=== PATIENT | female | born 1990 ===

== ENCOUNTER 2022-05-15 15:36 | Outpatient (CLI) | payer OTHER | END 2022-05-15 17:27 | disposition home or self-care (01) | LOC: PRENATAL 15:36 | PROVIDERS: ATTEND Obstetrics & Gynecology Maternal & Fetal Medicine | DX: O26.849 Uterine size-date discrepancy, unspecified trimester (principal); O35.9XX0 Maternal care for (suspected) fetal abnormality and damage, unspecified, not applicable or unspecified; Z3A.32 32 weeks gestation of pregnancy ==

== ENCOUNTER 2022-06-28 05:51 | Inpatient (IN) | payer OTHER ==
[~2022-06-28] VITALS: Ht 157.5 cm; Wt 78.9 kg
[2022-06-28] MEDS ORDERED: PRENATAL TABLE1 EAC4 PO (06:42)
== END 2022-06-30 11:43 | disposition home or self-care (01) | DRG 807 ==
LOC: LDR 05:51 → OB/GYN 16:15
PROVIDERS: ADMIT Obstetrics & Gynecology; ATTEND Obstetrics & Gynecology
PROC: 10E0XZZ Delivery of Products of Conception, External Approach (ICD-10-PCS; principal; 2022-06-28)
PROC: 4A1HXCZ Monitoring of Products of Conception, Cardiac Rate, External Approach (ICD-10-PCS; 2022-06-28)
DX: O80 Encounter for full-term uncomplicated delivery (principal); Z37.0 Single live birth; Z3A.39 39 weeks gestation of pregnancy; Z20.822 Contact with and (suspected) exposure to COVID-19